=== PATIENT | male | born 1965 | race Caucasian/White ===

== ENCOUNTER 2021-09-04 10:15 | Outpatient (RCR) | payer OTHER, SELFPAY | END 2021-10-27 09:03 | disposition home or self-care (01) | PROVIDERS: PCP Family Medicine; Visit Provider Orthopaedic Surgery | DX: M25.512 Pain in left shoulder (principal); Z51.89 Encounter for other specified aftercare | CPT/HCPCS: 97110 ==

== ENCOUNTER 2022-04-03 12:50 | Outpatient (CLI) | payer OTHER, SELFPAY ==
--- NOTE | 2022-04-03 13:00 | MR_ITS ---
[facility] [address] [facility] [address] Phone:?[phone] Fax:?[phone] Referring Physician Information: Giovanni Kruse M.D. [address] [facility] [address] Phone:?[phone] Fax:?[phone] Patient:Bethel Desai Jack.Colt.B:?1965 Sex:?Male Phone:?[phone] [facility] MRN:?[id number] Exam Date:?04/03/2022 ? EXAM: MRI of the RIGHT HUMERUS/ARM WITHOUT CONTRAST CLINICAL HISTORY: Acute right arm/biceps pain. History of injury lifting cabinets. Concern for biceps tendinitis. COMPARISONS: None available. TECHNICAL: MR sequences of the right humerus: Axials: PD T2FS Coronals: PD, T2, T2 FS Sagittals: PD, T2 CONTRAST: None SEDATION: None FINDINGS: There is rupture of the proximal long head of the biceps tendon with distal tendon retraction to the level of the mid humeral diaphysis. No fracture or suspicious bone marrow signal abnormality is seen. Split longitudinal/interstitial tear within the subscapularis tendon and moderate atrophy of the subscapularis muscle are suspected although it must be noted that the right shoulder including the rotator cuff is not well evaluated by this large [id number] study of the entire right arm/humerus. No mass lesion is seen. IMPRESSION: 1. Rupture of the proximal long head of the biceps tendon with distal tendon retraction to the level of the mid humeral diaphysis. 2. Split longitudinal/interstitial tear within the subscapularis tendon and moderate atrophy of the subscapularis muscle are suspected although it must be noted that the right shoulder including the rotator cuff is not well evaluated by this large [id number] study of the entire right humerus. Dedicated MRI of the right shoulder could be obtained for further evaluation of the right shoulder if clinically indicated. RCB Electronically signed on 04/04/2022 7:38:00 AM by Rao Mcgill M.D.
== END 2022-04-03 12:51 | disposition home or self-care (01) ==
LOC: MRI 12:58
PROVIDERS: PCP Family Medicine; Visit Provider Family Medicine
DX: M25.511 Pain in right shoulder (principal); S46.211A Strain of muscle, fascia and tendon of other parts of biceps, right arm, initial encounter; S46.011A Strain of muscle(s) and tendon(s) of the rotator cuff of right shoulder, initial encounter
CPT/HCPCS: 73218

== ENCOUNTER 2022-04-11 19:15 | Emergency (ER) | payer OTHER, SELFPAY ==
[2022-04-11 19:20] VITALS: BP 167/92; PULSE 72; RESP 20; TEMP 36.7; O2SAT 97; BMI 28.7
--- NOTE | 2022-04-11 19:31 | ED_ITS ---
HPI - General Adult General Time Seen by Provider: 19:31 Date Seen: 04/11/22 Chief complaint: Eye Problems Stated complaint: Right Eye Vision Issues - seeing blood vessels Time Seen by Provider: 04/11/22 19:30 History of Present Illness HPI narrative: 56-year-old male who comes in with painless vision change in the right eye. He reports that started about 630 he noticed an area in his inferior medial visual field on the right that is like ?blood swirling in water. ? It does not look like floaters. He has no eye pain. The area moves when he she has says focus but lags his eye movements. It waxes and wanes in size. He does not have any light sensitivity and denies any eye trauma. Related Data Home Medications Medication Instructions Recorded Confirmed cetirizine 10 mg tablet 10 mg PO QDAY PRN 04/09/22 04/09/22 Previous Rx's Medication Instructions Recorded hydrochlorothiazide 25 mg tablet 25 mg PO QDAY #30 tabs 03/26/22 valacyclovir 1 gram tablet 1,000 mg PO TID #21 tabs 04/09/22 Allergies Allergy/AdvReac Type Severity Reaction Status Date / Time Sulfa (Sulfonamide Allergy Mild Hives Verified 04/11/22 19:24 Antibiotics) PFSH PFS Surgical History (Updated 04/09/22 @ 13:48 by Roma Silvestre ([facility]), [facility]) History of arthroscopy of left shoulder (04/11/21) Social History , [facility]) Smoking Status: Never smoker Exam Narrative: Exam Narrative: General: well nourished , NAD Head: Atraumatic and normocephalic ENT: External ears and external nose are normal Eyes: Conjunctiva clear, pupils are equal reactive, external ocular motions are intact. Slight lag in blinking on the left side, patient has a history of Dunne's palsy. Neck: Full spontaneous range of motion of the neck Lungs: No respiratory distress Musculoskeletal: No tenderness or deformity Neurologic: No gross focal neurologic deficits Skin: No rashes Psych: Mood and affect are appropriate Const: Vital Signs, click to edit/add: Vital Signs - 24 hr 04/11/22 19:20 Temperature 98.0 F Pulse Rate [Pulse Oximeter] 72 Respiratory Rate 20 Blood Pressure [Ri ght Upper Arm] 167/92 H Pulse Oximetry 97 Oxygen Delivery Me thod Room Air Course Course Hospital Course: Patient seen examined, prior records reviewed. Patient with visual field changes in the right eye which he describes as blood floating water. Does not describe occurred and says that he can see through this sometimes, although unable to read any lines of the eye chart. There is no conjunctival injection, pupillary reflexes are intact. No pain, acute angle closure glaucoma is unlikely. Consider retinal detachment or vitreous hemorrhage, vitreous detachment also possible. Ultrasound of the orbit showed a fine linear abnormality just off the right in a on some views but did not seem to attach on either side and was only briefly visualized. Lens appears intact and in place. Dilated exam will be performed and will contact Ophthalmology. Reevaluation(s) Reevaluation #1: CT scan of the orbits is negative. Funduscopic exam after dilation demonstrates some dark maroon discoloration superiorly with well-demarcated line in the mid visual field. Care was discussed with [facility] who recommends follow-up tomorrow morning 8:30 a.m.. Activity precautions were given. Unclear if this represents vitreous hemorrhage, vitreous detachment, retinal detachment. Based on fine lines seen on ultrasound, this would be more consistent with a vitreous detachment. Time: 21:07 Vital Signs Vital signs: Initial Vital Signs Temperature 98.0 F 04/11/22 19:20 Temperature Source Temporal Artery Scan 04/11/22 19:20 Pulse Rate 72 04/11/22 19:20 Pulse Rhythm 04/11/22 19:20 Pulse Strength 3+ Normal 04/11/22 19:20 Respiratory Rate 20 04/11/22 19:20 Blood Pressure 167/92 H 04/11/22 19:20 Blood Pressure Mean 117 04/11/22 19:20 Blood Pressure Position Sitting 04/11/22 19:20 Pulse Oximetry 97 04/11/22 19:20 Oxygen Delivery Method 04/11/22 19:20 Vital Signs Temperature 98.0 F 04/11/22 19:20 Pulse Rate 72 04/11/22 19:20 Respiratory Rate 20 04/11/22 19:20 Blood Pressure 167/92 H 04/11/22 19:20 Pulse Oximetry 97 04/11/22 19:20 Oxygen Delivery Method 04/11/22 19:20 Temperature 98.0 F 04/11/22 19:20 Pulse Rate 72 04/11/22 19:20 Respiratory Rate 20 04/11/22 19:20 Blood Pressure 167/92 H 04/11/22 19:20 Pulse Oximetry 97 04/11/22 19:20 Oxygen Delivery Method 04/11/22 19:20 Discharge Plan Discharge Clinical Impression: Change in vision Patient Disposition: Home w/ Parent or Adult Condition: Stable Instructions: Blurred Vision (ED) Additional Instructions: Lay flat on your back to sleep tonight. Do not been forward at the waist, do not do any heavy lifting into follow-up. Go to [facility] at 8:30 a.m. tomorrow for re-evaluation. Activity Level: No strenuous activity Prescriptions: No Action hydrochlorothiazide 25 mg tablet 25 mg PO QDAY Qty: 30 0RF cetirizine 10 mg tablet 10 mg PO QDAY PRN valacyclovir 1 gram tablet 1,000 mg PO TID Qty: 21 0RF Follow Up/Referrals: Giovanni Kruse MD [Primary Care Provider] - Jamaal Vanegas OD [Referring] - Stand Alone Forms: MyHealth Info Instructions
--- NOTE | 2022-04-11 19:56 | CRLHL7_ITS ---
For Patients: As a result of the Century Cures Act, medical imaging exams and procedure reports are released immediately into your electronic medical record. You may view this report before your referring provider. If you have questions, please contact your health care provider. INDICATION: Vision problems in the right eye, history of left-sided Dunne`s palsy TECHNIQUE: CT sinuses without contrast. COMPARISON: None FINDINGS: Facial bones: No fractures or bone lesions. Specifically the nasal bones, temporomandibular joints, maxilla and mandible appear intact. Orbits and globes: Unremarkable. Sinuses: Left maxillary sinus mucosal thickening. Soft tissues: Unremarkable. IMPRESSION: No etiology seen to explain right sided vision abnormality. Please note that all CT scans at this facility use dose modulation, iterative reconstruction, and/or weight-based dosing when appropriate to reduce radiation dose to as low as reasonably achievable. Dictated by Maty Aguillon MD @ 04/11/2022 8:33:29 PM (Electronically Signed)
== END 2022-04-11 21:28 | disposition home or self-care (01) ==
PROVIDERS: Emergency Provider Family Medicine; PCP Family Medicine
DX: H53.8 Other visual disturbances (principal)
CPT/HCPCS: 70480; 99283; 99284

== ENCOUNTER 2022-04-16 07:30 | Outpatient (CLI) | payer OTHER, SELFPAY ==
--- NOTE | 2022-04-16 07:15 | MR_ITS ---
[address] [address] Phone:?[phone] Fax:?[phone] Referring Physician Information: Casimiro Victor M.D. [address] [facility] [address] Phone:?[phone] Fax:?[phone] Patient:Bethel Desai D.O.B:?1965 Sex:?Male Phone:?[phone] [facility] MRN:?[id number] Exam Date:?04/16/2022 ? EXAM: MRI of the RIGHT SHOULDER, without contrast CLINICAL INFORMATION: Male, 56 years old, with right shoulder pain since sustaining an injury on 03/22/2022. INDICATION: Evaluate for rotator cuff tear. PRIOR SURGERY: None reported. PLAIN FILMS: None available. COMPARISONS: Humerus MRI dated 04/03/2022. TECHNICAL INFORMATION: Using a 1.5T MR scanner and a localizing surface coil: coronal obliques: PD, T2, STIR sagittal obliques: PD, T2 axials: PD, T2 SEDATION: None CONTRAST: None FINDINGS: Bones: Proximal humerus: No fracture or marrow edema/pathology. No humeral Hill-Sachs or reverse Hill-Sachs lesion/impaction or contusion. Glenoid: No fracture or marrow edema/pathology. No osseous Bankart lesion. Rotator cuff and muscles/tendons: Supraspinatus: Mild supraspinatus tendinopathy, without tendon tear or muscle atrophy. Infraspinatus: No tendinopathy, tear or atrophy. Teres minor: No tendinopathy, tear or atrophy. Subscapularis: Moderate-marked tendinopathy of the superior distal subscapularis with high-grade partial-thickness articular/interstitial tearing over an area measuring 2.0 x 2.0 cm, with slender bursal surface fibers remaining intact inserting on the lateral aspect of the bicipital groove (axial T2 series 3 image 42 and sagittal T2 series 8 image 14). Grade 1 muscle atrophy. The muscular attachment is intact more inferiorly. Deltoid: No strain or atrophy. Coracoacromial arch: Acromion morphology: The acromion has type II morphology. No discrete subacromial osseous spur or os acromiale. Acromiohumeral space: The acromiohumeral space is within normal limits. Coracohumeral space: The coracohumeral space is within normal limits. Acromioclavicular joint: Joint: Mild AC joint arthropathy, with 3 mm of inferior osteophytosis that results in a supraspinatus contour abnormality (sagittal PD series 7 image 14). Ligaments: Coracoclavicular ligaments are intact. Bursae: Subacromial-subdeltoid: Mild subacromial-subdeltoid bursal thickening/edema. Subcoracoid: No convincing subcoracoid bursal thickening/bursitis. Biceps tendon: Nonvisualization the biceps long head tendon. Glenohumeral joint: Effusion/cyst: Moderate glenohumeral joint effusion, with synovitis. Articular cartilage: Humeral head: No osteochondral abnormalities. Glenoid: No osteochondral abnormalities. Loose bodies: No discrete intra-articular body within the joint. Labrum:?Intrasubstance degeneration and linear tearing of the superior/posterosuperior labrum measures 2.1 cm (coronal T2 series 6 images 12- 17 and axial PD series 3 images 12-14). No paralabral cyst. Inferior glenohumeral ligament/axillary pouch:?Intact. The axillary pouch is normal in thickness and signal. No evidence of adhesive capsulitis or capsular injury. IMPRESSION: 1. Full-thickness avulsion/disruption of the biceps long head tendon, significant tendon retraction. 2. Moderate-marked subscapularis tendinopathy with a 2.0 x 2.0 cm area of high- grade partial-thickness articular surface tearing involving the majority of the lesser tuberosity attachment. Grade 1 muscle atrophy. 3. Intrasubstance degeneration and linear tearing of the superior/posterosuperior labrum measuring 2.1 cm. No paralabral cyst. 4. Mild AC joint arthropathy which results in a supraspinatus contour abnormality. There is mild subacromial-subdeltoid bursal inflammation. However, the acromiohumeral space is normal. 5. Moderate glenohumeral joint effusion with synovitis. No full-thickness chondral defect or evidence of osteoarthritis. 6. Mild supraspinatus tendinopathy, without tear. BC Electronically signed on 04/16/2022 1:26:00 PM by Wilfredo Mccain M.D.
== END 2022-04-16 07:31 | disposition home or self-care (01) ==
LOC: MRI 07:31
PROVIDERS: PCP Family Medicine; Visit Provider Orthopaedic Surgery
DX: M25.511 Pain in right shoulder (principal); S46.911A Strain of unspecified muscle, fascia and tendon at shoulder and upper arm level, right arm, initial encounter; M75.101 Unspecified rotator cuff tear or rupture of right shoulder, not specified as traumatic; M25.411 Effusion, right shoulder
CPT/HCPCS: 73221

== ENCOUNTER 2022-05-09 08:59 | Outpatient (CLI) | payer OTHER, SELFPAY | END 2022-05-09 09:00 | disposition home or self-care (01) | LOC: NFLDREF 05-11 04:30 | PROVIDERS: PCP Family Medicine; Referring Provider Family Medicine; Visit Provider Family Medicine | DX: Z01.818 Encounter for other preprocedural examination (principal); I10 Essential (primary) hypertension; E78.5 Hyperlipidemia, unspecified; Z86.39 Personal history of other endocrine, nutritional and metabolic disease | CPT/HCPCS: 80053; 80061 ==

== ENCOUNTER 2022-05-22 06:15 | Day surgery (SDC) | payer OTHER, SELFPAY ==
[2022-05-22] VITALS (15 sets, daily range): BP systolic 119–165; BP diastolic 74–99; PULSE 14–90; RESP 14–20; TEMP 36.4–36.6; O2SAT 93–99; BMI 33.3
[2022-05-22] MEDS: CELECOXIB 200 MG CAPSULE PO (06:30)
[2022-05-22] MEDS: OXYCODONE (CR) 10 MG TAB.ER.12H PO (06:30)
[2022-05-22] MEDS: ACETAMINOPHEN 500 MG TABLET 1000 MG PO (06:30)
--- NOTE | 2022-05-22 06:51 | SUR.PREOP ---
Patient provided home covid negative results to RN.
[2022-05-22] MEDS: LACTATED RINGERS 1000 ML 1,000 ML 100 ML IV ×2 (06:55→10:24)
[2022-05-22] MEDS: SODIUM CHLORIDE 0.9 % (FLUSH) 10 ML SYRINGE IVF (06:55)
[2022-05-22] MEDS: fentaNYL 100 MCG/2 ML inj IVP (07:15)
[2022-05-22] MEDS: MIDAZOLAM HCL 1 MG/ML inj IVP (07:15)
--- NOTE | 2022-05-22 07:23 | SUR.PREOP ---
TIME?OUT:?711 PT/Steven HOLCOMB RN/Gemma SERNA CRNA?VERIFICATION?OF?SURGICAL?SITE,?PROCEDURE,?AND?CONSENT OBTAINED?PRIOR?TO?INVASIVE?PROCEDURE.
--- NOTE | 2022-05-22 07:30 | P.NB_ITS ---
Nerve Block Nerve Block Time Seen by Provider: 07:15 Date Seen: 05/22/22 Type of block requested by surgeon for post-operative analgesia: supraclavicular Side: right Time out performed: Yes Verification of patient name: Yes Verification of date of : Yes Site marking: site marked Name of person performing procedure: Mason Moreno CRNA Continuous monitoring Was continuous monitoring of O2 sat, B/P, cardiac monitor technician, recorded every 15 minutes?: Yes Procedure Checklist: sterile prep, needles and gloves Ultrasound guided. Images saved: Yes Medications given in 5ml increments after negative aspiration: Ropivicaine %: 0.5 mL: 25 Needle gauge: 20 Decadron (mg): 10 Precedex (mcg): 20 Patient tolerated procedure well: Yes Block Charges Block Charge (with Pro Fee): Brachial Plexus Use of Ultrasound Machine for Block: Yes- US Guidance/pain block
[2022-05-22] MEDS: CEFAZOLIN 2 GM INJ IVP (07:45)
--- NOTE | 2022-05-22 10:20 | W.ANESCHARGE ---
Anesthesia Charges Start Date/Time Anesthesia Start Date: 05/22/22 Anesthesia Start Time: 07:33 Stop Date/Time Anesthesia Stop Date: 05/22/22 Anesthesia Stop Time: 10:16
--- NOTE | 2022-05-22 10:58 | P.ORPRC_ITS ---
Procedure Note Date of procedure: 05/22/22 Procedure: PREOPERATIVE DIAGNOSIS: Right shoulder subscap tear, biceps tear, AC joint arthrosis POSTOPERATIVE DIAGNOSIS: Right shoulder subscap tear, biceps tear, AC joint arthrosis NAME OF OPERATION: Right shoulder arthroscopic subacromial decompression, distal clavicle excision, arthroscopic subscap repair, sub pec biceps tenodesis SURGEON: Casimiro Victor MD DESIGNER/WRITER: Yumiko Cota PA-C ANESTHESIA: Supraclavicular block plus general endotracheal ESTIMATED BLOOD LOSS: 5 mL COMPLICATIONS: None SPECIMENS: None DRAINS: None PREOPERATIVE ANTIBIOTICS: Ancef 2 grams INDICATIONS: The patient is a 56-year-old with a history of right shoulder pain secondary to the above diagnoses. Despite appropriate non operative management, they continue to have symptoms. Operative intervention was recommended. The risks, benefits and expected outcomes were discussed in detail. These included but were not limited to: Infection, bleeding, injury to blood vessel or nerve, venous thromboembolism. All questions were answered to their satisfaction. PROCEDURE: A supraclavicular block was placed by Anesthesia. General anesthesia was administered. The patient was placed in the high beach chair position. The right shoulder was prepped and draped in the usual sterile fashion. The glenohumeral joint was infiltrated with 20 mL of normal saline with epinephrine. The posterior portal was established, the arthroscope was introduced. The anterior portal was established, Diagnostic arthroscopy was performed with findings as follows: The biceps is torn and most of the tendon is retracted out of the joint. There is a large stump of tendon still attached to the supraglenoid tubercle with a small wisp of tendon headed toward the bicipital groove. There is degenerative tearing of anterior, posterior and superior labrum. Articular surfaces on the humeral head and glenoid are normal. There are no loose bodies. There is low-grade, partial-thickness tearing of the insertion of the supraspinatus. There is a longitudinal split of the subsc ap. The stump of the biceps was debrided with the shaver and the [place]. The labrum was circumferentially debrided with the shaver. A longitudinal split in the subscap was debrided with the shaver. It was then repaired with 2 margin convergence sutures using the scorpion and arthroscopic knot tying. The more lateral suture was then placed in a SwiveLock anchor in the superior, lateral aspect of the lesser tuberosity. This nicely repaired the subscap. The undersurface of the supraspinatus was debrided with the shaver. This results in a 3-4 mm partial-thickness tear of the insertion. The arthroscope was placed in the subacromial space, the lateral portal was established. The Arthrex [place] was used to dissect the acromion free. The CA ligament was recessed off the anterior acromion, the AC joint was exposed. The acromioplasty was performed with the bur in the posterior portal. The bur was then placed in the lateral portal and the lateral and anterior aspect of the acromion were resected. The undersurface of the distal clavicle was resected through the lateral portal. Finally, the bur was placed in the anterior portal and the remainder of the distal clavicle was resected for a total of 10 mm. The subacromial/subdeltoid bursa was aggressively debrided. The bursal surface of the rotator cuff is pristine, without high-grade partial-thickness or full- thickness tearing. Arthroscopic instruments were removed. A longitudinal incision was made over the anterior aspect of the arm at the musculotendinous junction of the biceps. Subcutaneous dissection was taken with Metzenbaum scissors to the biceps tendon. It was freed up from the surrounding scar. There was a 15 mm stump of tendon, proximal to the musculotendinous junction. A 2-0 FiberWire whipstitch was placed in the biceps tendon. We then drilled a unicortical drill hole in the medial aspect of the humerus in the sub pec position. An Arthrex FiberTak anchor was placed. We shuttled both limbs of whip stitch through the anchor. We passed 1 limb through the biceps and tied the sutures over the top of the biceps, securing the sub pec biceps tenodesis. The wound was irrigated with normal saline off the pump. Subcutaneous tissues were closed with a 3-0 Vicryl. Skin was closed with a 3-0 Monocryl in a subcuticular fashion. A dry dressing, polar care and sling were applied. Sponge and needle counts were correct x2. The patient tolerated the procedure well. There were no apparent complications. They were carefully transferred to the hospital bed and taken to the postanesthesia care unit in satisfactory condition. PLAN: The patient will be discharged to home. Gentle, active range of motion of the shoulder will be allowed in forward flexion and abduction. We will avoid external rotation for 6 weeks postoperatively. They can work on active range of motion of the elbow, wrist and fingers, without pulling or lifting with the biceps for 3 months. They will follow up in the office next week for a wound check and an AP and transscapular Y-view of the shoulder prior to being seen.
== END 2022-05-22 12:00 | disposition home or self-care (01) ==
PROVIDERS: PCP Family Medicine; Visit Provider Orthopaedic Surgery
PROC: (CPT 23412; principal; 2022-05-22 07:45)
DX: S46.011A Strain of muscle(s) and tendon(s) of the rotator cuff of right shoulder, initial encounter (principal); S46.211A Strain of muscle, fascia and tendon of other parts of biceps, right arm, initial encounter; M19.011 Primary osteoarthritis, right shoulder
CPT/HCPCS: 29827; 29828; 29826; 29824; 1630; 64415; 76942; A9270; C1713; J0330; J0690; J1100; J2250; J2370; J2405; J2704; J2710; J2795; J3010; J7120; L3670

== ENCOUNTER 2022-06-11 13:57 | Outpatient (CLI) | payer OTHER, SELFPAY | END 2022-06-11 13:58 | disposition home or self-care (01) | LOC: FBOREF 15:07 | PROVIDERS: PCP Family Medicine; Visit Provider Physician Assistant | DX: Z01.818 Encounter for other preprocedural examination (principal); I10 Essential (primary) hypertension | CPT/HCPCS: 87040; 87070; 87075; 87186 ==

== ENCOUNTER 2022-06-12 07:19 | Day surgery (SDC) | payer OTHER, SELFPAY ==
[2022-06-12] VITALS (13 sets, daily range): BP systolic 124–155; BP diastolic 80–96; PULSE 72–109; RESP 16–20; TEMP 36.7–37.2; O2SAT 92–97; BMI 33.2
[2022-06-12] MEDS: LACTATED RINGERS 1000 ML 1,000 ML 100 ML IV (07:15)
[2022-06-12] MEDS: fentaNYL 100 MCG/2 ML inj IVP (07:30)
[2022-06-12] MEDS: MIDAZOLAM HCL 1 MG/ML inj IVP (07:30)
--- NOTE | 2022-06-12 08:42 | SUR.PREOP ---
TIME?OUT:?0728 PT/RN/MDA?VERIFICATION?OF?SURGICAL?SITE,?PROCEDURE,?AND?CONSENT OBTAINED?PRIOR?TO?INVASIVE?PROCEDURE.
[2022-06-12] MEDS: CEFAZOLIN 2 GM INJ IVP (09:39)
--- NOTE | 2022-06-12 10:25 | PM.ORPRC ---
Procedure Note Date of procedure: 06/12/22 Procedure: PREOPERATIVE DIAGNOSIS: Right shoulder anterior portal infection, status post rotator cuff repair POSTOPERATIVE DIAGNOSIS: Right shoulder anterior portal infection, status post rotator cuff repair NAME OF OPERATION: Right shoulder open anterior portal incision and drainage, arthroscopic glenohumeral joint and subacromial space irrigation and debridement SURGEON: Casimiro Victor MD LIME VAT TENDER: TAMIKA Marshall ANESTHESIA: Supraclavicular block plus general endotracheal ESTIMATED BLOOD LOSS: 5 mL COMPLICATIONS: None SPECIMENS: Gram stain, aerobic and anaerobic cultures labeled as anterior portal (these should be held for 2 weeks, suspecting a cuti bacterium infection) DRAINS: None PREOPERATIVE ANTIBIOTICS: Ancef 2 grams INDICATIONS: The patient is a 56-year-old with a history of right shoulder rotator cuff repair. His anterior portal has been red, swollen with purulent drainage. Timely irrigation and debridement was recommended. The risks, benefits and expected outcomes were discussed in detail. These included but were not limited to: Infection, bleeding, injury to blood vessel or nerve, venous thromboembolism. All questions were answered to their satisfaction. PROCEDURE: A supraclavicular block was placed by Anesthesia. General anesthesia was administered. The patient was placed in the high beach chair position. The right shoulder was prepped and draped in the usual sterile fashion. The previously placed anterior portal was opened with a Sofiya. A tiny amount of purulent drainage was encountered. This was sent for Gram stain and culture. The wound was probed and was felt to not track deep, into the subacromial space or glenohumeral joint. It was irrigated with normal saline off of the pump. The arthroscope was introduced through the previously placed posterior portal. Anterior portal was not instrumented, into the joint or subacromial space throughout the case. Diagnostic arthroscopy was performed with findings as follows: The articular surfaces are normal the biceps has been resected. The insertion of the supraspinatus is intact. The margin convergence suture in the subscap remains intact. Suture in the insertion of the subscap has pulled through, resulting in partial detachment of the upper subscap from the lesser tuberosity. There is no purulence in the glenohumeral joint. Normal saline was run through the glenohumeral joint via the pump. The scope fluid does not communicate with anterior portal. The arthroscope was then placed in the subacromial space. The previously placed lateral portal was established. There is no purulence in the subacromial space. Additionally, the subacromial space does not communicate with anterior portal. The shaver was used to debride some of the soft tissues in the subacromial space. We ran the rest of the arthroscopic fluid through the subacromial space. Arthroscopic instruments were removed. Portals were closed with a 3-0 nylon. A dry dressing was applied. Sponge and needle counts were correct x2. The patient tolerated the procedure well. There were no apparent complications. They were carefully transferred to the hospital bed and taken to the postanesthesia care unit in satisfactory condition. PLAN: The patient will be discharged to home. Restrictions will be unchanged from previous. He will be treated with Keflex 500 mg p.o. q.i.d. x2 weeks.
--- NOTE | 2022-06-12 10:29 | W.ANESCHARGE ---
Anesthesia Charges Start Date/Time Anesthesia Start Date: 06/12/22 Anesthesia Start Time: 09:16 Stop Date/Time Anesthesia Stop Date: 06/12/22 Anesthesia Stop Time: 10:27
--- NOTE | 2022-06-12 11:41 | W.PM.NB ---
Nerve Block Nerve Block Time Seen by Provider: 08:31 Date Seen: 06/12/22 Type of block requested by surgeon for post-operative analgesia: supraclavicular Side: right Time out performed: Yes Verification of patient name: Yes Verification of date of : Yes Site marking: site marked Name of person performing procedure: [place] Continuous monitoring Was continuous monitoring of O2 sat, B/P, industrial hygiene engineer, recorded every 15 minutes?: Yes Procedure Checklist: sterile prep, needles and gloves Ultrasound guided. Images saved: Yes Medications given in 5ml increments after negative aspiration: Ropivicaine %: 0.5 mL: 20 Needle gauge: 22 Decadron (mg): 10 Precedex (mcg): 25 Patient tolerated procedure well: Yes Block Charges Block Charge (with Pro Fee): Brachial Plexus Use of Ultrasound Machine for Block: Yes- US Guidance/pain block
--- NOTE | 2022-06-12 11:42 | W.ANESCHARGE ---
Anesthesia Charges Start Date/Time Anesthesia Start Date: 06/12/22 Anesthesia Start Time: 09:16 Stop Date/Time Anesthesia Stop Date: 06/12/22 Anesthesia Stop Time: 10:27
== END 2022-06-12 12:06 | disposition home or self-care (01) ==
PROVIDERS: Visit Provider Orthopaedic Surgery
PROC: (CPT 29805; principal; 2022-06-12 08:45)
DX: T81.49XA Infection following a procedure, other surgical site, initial encounter (principal)
CPT/HCPCS: 29822; 01630; 76942; 87070; 87075; 87186; 87205; J0330; J0690; J1100; J2250; J2405; J2704; J2795; J3010; J7120

== ENCOUNTER 2022-06-14 18:26 | Emergency (ER) | payer OTHER, SELFPAY ==
[2022-06-14 18:35] VITALS: BP 158/99; PULSE 78; RESP 18; TEMP 36.9; O2SAT 98; BMI 33.2
[2022-06-14 19:00] VITALS: BP 140/92; PULSE 72; RESP 18; O2SAT 94
--- NOTE | 2022-06-14 19:14 | ED_ITS ---
HPI - General Adult General Time Seen by Provider: 19:14 Date Seen: 06/14/22 Chief complaint: High Blood Pressure Stated complaint: BP spiking a lot, Home reading of 176/107 Time Seen by Provider: 06/14/22 18:51 Source: patient Mode of arrival: ambulatory Limitations: no limitations History of Present Illness HPI narrative: Fady is a 56-year-old male past medical history includes hypertension on hydrochlorothiazide 25 mg, status post arthroscopic of right shoulder and recently clean out for postoperative infection presents emerged department with with elevated blood pressure reading. Patient states he had arthroscopic right shoulder surgery on 05/22, after that time he developed increasing pain and drainage from the incision site, he was seen by Orthopedics and they went in to perform a washout for postoperative infection. He is not currently on any antibiotics. For the last 3 weeks he has been on Percocet for pain, he usually takes 1 tablet per day, his last tablet was last night, he is now on tell an awl and Advil. His pain has improved, there has not been any drainage from the surgical sites, he has not had any fevers or chills, felt more fatigued today checked his blood pressure continue to elevate 1 time to being 176/107, denies any visual changes, headache, chest pain or shortness of breath. Patient did check it multiple times. Patient was concerned that possibly the infection was back. No other concerns at this time. Related Data Home Medications Medication Instructions Recorded Confirmed cetirizine 10 mg tablet 10 mg PO QDAY PRN 04/09/22 06/11/22 Previous Rx's Medication Instructions Recorded hydrochlorothiazide 25 mg tablet 25 mg PO QDAY #90 tabs 05/09/22 cephalexin 500 mg tablet 500 mg PO QID #56 tabs 06/12/22 oxycodone-acetaminophen 5 mg-325 1 - 2 tab PO Q4-6H PRN pain #20 06/12/22 mg tablet (Percocet) tabs Allergies Allergy/AdvReac Type Severity Reaction Status Date / Time Sulfa (Sulfonamide Allergy Mild Hives Verified 06/11/22 13:34 Antibiotics) Review of Systems Status of ROS: Reports: 10 or more systems reviewed and unremarkable except as noted in History and below PFSH PFS Surgical History History of arthroscopy of left shoulder (04/11/21) ?Z98.890 - Other specified postprocedural states (ICD-10) S/P arthroscopy of right shoulder (05/22/22) ?Z98.890 - Other specified postprocedural states (ICD-10) Social History Smoking Status: Never smoker How often do you have a drink containing alcohol: never AUDIT-C Alcohol total score: 0 Non-prescribed substance use: denies use Caffeine: Yes Little interest or pleasure in doing things: not at all Feeling down, depressed, or hopeless: not at all Exam Narrative: Exam Narrative: General: No obvious distress sitting comfortably, nontoxic in appearance HEENT: Pupils equal round reactive to light, extraocular muscles intact, oropharynx clear moist Neck: Full range of motion, supple Lungs: Clear to auscultation bilaterally Heart: Normal sinus rhythm S1-S2 Muscle skeletal: Right shoulder, incision sites look clean, no surrounding erythema or tenderness to palpation. Neuro: Alert awake and oriented x3 Const: Vital Signs, click to edit/add: Vital Signs - 24 hr 06/14/22 18:35 Temperature 98.4 F Pulse Rate [Left P ulse Oximeter] 78 Respiratory Rate 18 Blood Pressure [Ri ght Upper Arm] 158/99 H Pulse Oximetry 98 Oxygen Delivery Me thod Room Air Course Course Hospital Course: 7:00 PM: AIDET, patient's blood pressure is 140/92, patient is not febrile, no tachycardia, less likely sepsis based on exam and vital signs, will still obtain CBC, CMP, lactate and blood cultures, will continue to monitor his blood pressure, no signs of any hypertensive emergency or urgency. Patient was in agreement. Differential diagnosis include but not limited to septic arthritis, cellulitis, sepsis, contusion, ocular damage nerve damage ligament damage as well as hypertensive emergency or urgency as well as all etiologies. Reevaluation(s) Reevaluation #1: Patient was updated on his lab results, CBC showed no leukocytosis, lactate was normal, metabolic panel showed no electrolyte abnormalities, based on physical exam and lab values no signs of any infection blood pressure remained stable during his stay, he was feeling better after above care given, he does have follow-up with orthopedics this Saturday, no changes to be made with his hydrochlorothiazide, he will take his Percocet once he gets home this evening, return precautions given. Time: 21:08 Vital Signs Vital signs: Initial Vital Signs Temperature 98.4 F 06/14/22 18:35 Temperature Source Temporal Artery Scan 06/14/22 18:35 Pulse Rate 78 06/14/22 18:35 Respiratory Rate 18 06/14/22 18:35 Blood Pressure 158/99 H 06/14/22 18:35 Blood Pressure Mean 118 H 06/14/22 18:35 Blood Pressure Position Sitting 06/14/22 18:35 Pulse Oximetry 98 06/14/22 18:35 Oxygen Delivery Method Room Air 06/14/22 18:35 Vital Signs Temperature 98.4 F 06/14/22 18:35 Pulse Rate 78 06/14/22 18:35 Respiratory Rate 18 06/14/22 18:35 Blood Pressure 158/99 H 06/14/22 18:35 Pulse Oximetry 98 06/14/22 18:35 Oxygen Delivery Method Room Air 06/14/22 18:35 Temperature 98.4 F 06/14/22 18:35 Pulse Rate 78 06/14/22 18:35 Respiratory Rate 18 06/14/22 18:35 Blood Pressure 158/99 H 06/14/22 18:35 Pulse Oximetry 98 06/14/22 18:35 Oxygen Delivery Method Room Air 06/14/22 18:35 Medical Decision Making Lab Data Labs: Lab Results 06/14/22 Range/Units 19:34 WBC 5.51 (4.50-11.00) K/uL RBC 4.71 (4.30-5.90) m/uL Hgb 13.6 (13.5-17.5) gm/dL Hct 42.2 (37.0-53.0) % MCV 90 (80-100) fL MCH 29 (26-34) pg MCHC 32 (32-36) gm/dL RDW Coeff of Matthew 14.3 (11.5-15.5) % Plt Count 221 (140-440) K/uL Neut % (Auto) 42.5 (42.0-72.0) % Lymph % (Auto) 45.2 H (20-44) % [place] % (Auto) 8.0 (0.0-11.0) % Eos % (Auto) 3.6 (0.0-7.0) % Baso % (Auto) 0.5 (0.0-3.0) % Neut # (Auto) 2.34 (1.7-7.0) K/uL Lymph # (Auto) 2.50 (0.90-2.90) K/uL [place] # (Auto) 0.40 (0.00-0.90) K/UL Eos # (Auto) 0.20 (0.00-0.50) K/uL Baso # (Auto) 0.03 (0.00-0.30) K/uL Sodium 139 (135-149) mmol/L Potassium 3.7 (3.6-5.1) mmol/L Chloride 106 (96-114) mmol/L Carbon Dioxide 27 (20-32) mmol/L BUN 23 (7-30) mg/dL Creatinine 0.8 (0.5-1.5) mg/dL Estimated Creat Clear 101.88 Estimated GFR 103 ml/min Glucose 89 (60-115) mg/dL Lactate 0.7 (0.5-1.9) mmol/L Calcium 8.9 (8.4-10.6) mg/dL Total Bilirubin 0.5 (0.1-1.5) mg/dL AST 22 (12-35) U/L ALT 26 (4-50) U/L Alkaline Phosphatase 54 (40-150) U/L Total Protein 6.6 (6.0-8.3) g/dL Albumin 4.1 (3.3-5.0) g/dL Discharge Plan Discharge Clinical Impression: S/P arthroscopy of right shoulder, Elevated blood pressure reading Patient Disposition: Home, Self-Care Condition: Improved Instructions: Hypertension (ED) Additional Instructions: To follow-up as scheduled with Orthopedics here in [place] next Saturday, continue with current medications for blood pressure hydrochlorothiazide 25 mg tablets daily, can continue with Advil and/or Tylenol every 4-6 hours for shoulder pain, for breakthrough pain Percocet 5/325 mg, return if any worsening symptoms. Activity Level: Activity as Tolerated Prescriptions: No Action hydrochlorothiazide 25 mg tablet 25 mg PO QDAY Qty: 90 3RF oxycodone-acetaminophen [Percocet] 5-325 mg tablet 1 - 2 tab PO Q4-6H PRN (Reason: pain) Qty: 20 0RF cephalexin 500 mg tablet 500 mg PO QID Qty: 56 0RF cetirizine 10 mg tablet 10 mg PO QDAY PRN Follow Up/Referrals: Giovanni Kruse MD [Primary Care Provider] - Stand Alone Forms: [employer] Info Instructions
[2022-06-14 19:30] VITALS: BP 144/92; PULSE 69; RESP 18; O2SAT 96
[2022-06-14 19:51] LABS: Basophils Absolute Auto 0.03 K/uL (0.00-0.30); Basophils Percent Auto 0.5 % (0.0-3.0); Eosinophils Percent Auto 3.6 % (0.0-7.0); Hematocrit 42.2 % (37.0-53.0); Hemoglobin* 13.6 gm/dL (13.5-17.5); Immature Granulocytes Abs Auto 0.01 K/uL (0.00-0.30); Immature Granulocytes Pct Auto 0.2 %; Lymphocytes Percent Auto 45.2 % (20-44); Mean Corpuscular HGB Conc 32 gm/dL (32-36); Mean Corpuscular Hemoglobin 29 pg (26-34); Mean Corpuscular Volume 90 fL (80-100); Neutrophils Absolute Auto 2.34 K/uL (1.7-7.0); Neutrophils Percent Auto 42.5 % (42.0-72.0); Platelet Count* 221 K/uL (140-440); RDW Coefficient of Variation % 14.3 % (11.5-15.5); Red Blood Count 4.71 m/uL (4.30-5.90); White Blood Count* 5.51 K/uL (4.50-11.00)
[2022-06-14 19:52] LABS: Lactate* 0.7 mmol/L (0.5-1.9)
[2022-06-14 19:53] LABS: Slide Review Reflex No
[2022-06-14 20:00] VITALS: BP 161/97; PULSE 68; RESP 18; O2SAT 94
[2022-06-14 20:08] LABS: Albumin* 4.1 g/dL (3.3-5.0); Chloride* 106 mmol/L (96-114); Sodium* 139 mmol/L (135-149)
[2022-06-14 20:09] LABS: Potassium* 3.7 mmol/L (3.6-5.1)
[2022-06-14 20:11] LABS: Alanine Aminotransferase* 26 U/L (4-50); Alkaline Phosphatase* 54 U/L (40-150); Aspartate Amino Transferase* 22 U/L (12-35); Bilirubin Total* 0.5 mg/dL (0.1-1.5); Blood Urea Nitrogen* 23 mg/dL (7-30); Carbon Dioxide* 27 mmol/L (20-32); Creatinine* 0.8 mg/dL (0.5-1.5); Est. Creatinine Clearance* 101.88; Estimated Glomerular Filt Rate 103 ml/min; Glucose* 89 mg/dL (60-115); Total Protein* 6.6 g/dL (6.0-8.3)
[2022-06-14 20:12] LABS: Calcium* 8.9 mg/dL (8.4-10.6)
[2022-06-14 20:30] VITALS: BP 160/95; PULSE 73; RESP 18; O2SAT 94
[2022-06-14 21:00] VITALS: BP 163/102; PULSE 84; RESP 18; O2SAT 95
== END 2022-06-14 21:32 | disposition home or self-care (01) ==
PROVIDERS: Emergency Provider Student in an Organized Health Care Education/Training Program; PCP Family Medicine
DX: I10 Essential (primary) hypertension (principal)
CPT/HCPCS: 36415; 80053; 83605; 85025; 87040; 99283

== ENCOUNTER 2022-11-06 13:45 | Outpatient (RCR) | payer OTHER, SELFPAY | END 2023-02-04 15:05 | disposition home or self-care (01) | PROVIDERS: PCP Family Medicine; Visit Provider Physician Assistant Surgical | DX: M25.511 Pain in right shoulder (principal); Z98.890 Other specified postprocedural states; Z51.89 Encounter for other specified aftercare | CPT/HCPCS: 97110; 97140; 97162 ==

== ENCOUNTER 2022-12-18 12:30 | Outpatient (RCR) | payer OTHER, SELFPAY ==
--- NOTE | 2022-11-19 15:27 | PT.OPEX ---
PT [facility] Eval PT [facility] Outpatient Eval Start: 11/19/22 14:08 Freq: Status: Active Protocol: Document 11/19/22 14:09 CRP (Rec: 11/19/22 15:23 CRP [id number]) E-signed By Nehemias Puri PT Physical Therapy Outpatient Evaluation Insurance Information Insurance Name [employer] Medical Diagnosis Low back pain Treating Diagnosis Back pain Back stiffness poor motor control of the thoracolumbar spine Referring MD Dr Kruse Subjective Subjective Pt has had a year hx of right sided back pain Pain increases with any activity. 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 Lying down at night will then be really painful. Does not always matter what side he sleeps on. Pain increases with bending and lifting. Prolonged sitting is ok. Pain located TL junction off to the R. Denies numbness or tingling. Denies pain into the LEs. Pt has not found any specific exer he can do to help. Pt works with a [employer] company and spends most of his time sitting. Pt does note that over recent hx he and his have built a home. He had done a lot of his own work . Pain Comments Pain can be 0/10 with sitting. During the day the pain at most will be 3/10. LYing down pain can be 7/10 pain. Current Work Status Chief Nurse Objective Range of Motion Trunk ROM Flex WNL Ext min dec with R TL spine BIlat SB min dec Combined ext and R rot/R SB painful Bilat rot min dec with R pain on L rotation Strength MMT Myotomes WNL Palpation Palpable pain R thoracolumbar spine paraspinals Other/Pertinent Objective Segmental testing UPAs painful T9-12 on R R rot mobs - mild restriction and painfree Assessment Assessment/Impression Pt presents to the clinic with ongoing R sided thoracolumbar spine pain that appears secondary to nociceptive pain mechanisms related to facet closing on at the R thoracolumbar spine. Pts presentation is characterized by painful hypomobility of the thoracolumbar spine, poor nm control of the trunk and general lower quadrant weakness. Skilled PT is necessary to incorporate ther ex, nm yessica, ther act, manual therapy and pt education to decrease pain and improve functional mobility. Primary Functional Limitations Working on property Bending/twisting/lifting Plan of Care Rehabilitation Potential Excellent Physical Therapy Goals 1. Pt will be 100% independent with HEP in 6 weeks. 2. Pt will complete chores around property without c.o pain in 10 weeks. 3. Pt will sleep through the night without c.o pain in 12 weeks. Coordination/Communication With Referral Source Treatment Plan/Direct Interventions Joint Mobilization,Manual Therapy,Neuromuscular Re-ed, Self-Care/Home Management, Therapeutic Activities, Therapeutic Exercises Frequency/Duration 1-2x/wk for 12 weeks Patient Will Be Discharged From Therapy Completion of LTG(s),Skills Plateau,Independent w/HEP, Independently Progressing Evaluation Billing Untimed Code Treatment Minutes 30 Complexity Moderate Certification Information Physician Comment/Change : Physician NPI Number #
== END 2023-03-07 14:48 | disposition home or self-care (01) ==
PROVIDERS: PCP Family Medicine; Visit Provider Family Medicine
DX: M54.50 Low back pain, unspecified (principal); M25.69 Stiffness of other specified joint, not elsewhere classified; Z51.89 Encounter for other specified aftercare
CPT/HCPCS: 97110; 97112; 97140; 97162

== ENCOUNTER 2023-09-03 19:40 | Outpatient (CLI) | payer OTHER, SELFPAY ==
--- OUTSIDE RECORDS SUMMARY | 2023-09-03 19:42 | XMS_ITS | Clinical Summary ---
Author Organization [facility] Address [address] [place] [address] Care Team Providers Care Admitting Coordinator Name Role Phone Andrew Wood MD Primary Care Provider Source Comments You are receiving this document as you are listed as the primary care provider,follow-up provider, or the patient has been referred to you for consultation.This is in compliance with the Medicare and[facility],which states Providers who transition their patient to another setting of careor provider of care or refers their patient to another provider of care shouldprovide summary care record for each transition of care or referral. [facility] Allergies No known active allergies Medications Medication Sig Dispensed Refills Start Date End Date Status ATENolol (AKA TENORMIN) 100 MG tablet Take 100 mg by mouth daily. Active SIMVASTATIN Active Loratadine-Pseudoephedr ine (CLARITIN-D 24 HOUR OR) Active amoxicillin-clavulanate (AKA AUGMENTIN) 875 mg tabletIndications:Wound infection Take 1 Tab by mouth two times a day. 20 Tab 0 08/21/2011 Active Active Problems No known active problems Immunizations Name Administration Dates Next Due Pfizer Monovalent 12+ Purple Top 02/07/2021,05/19,05/14/2020 Tdap 08/12/2011 Social History Tobacco Use Types Packs/Day Years Used Date Smoking Tobacco: Never Smokeless Tobacco: Never Alcohol Use Standard Drinks/Week Comments Not Asked 0 (1 standard drink = 0.6 oz pur e alcohol) Sex and Gender Information Value Date Recorded Sex Assigned at Not on file Gender Identity Not on file Sexual Orientation Not on file Last Filed Vital Signs Vital Sign Reading Time Taken Comments Blood Pressure 148/90 08/21/2011 8:27 PM CDT Pulse 87 08/21/2011 8:27 PM CDT Temperature 37.9 ??C (100.3 ??F) 08/21/2011 8:27 PM C DT Respiratory Rate 18 08/21/2011 8:27 PM CDT Oxygen Saturation - - Inhaled Oxygen Concentration - - Weight 112.9 kg (249 lb) 08/21/2011 8:27 PM CDT Height 177.8 cm (5' 10) 08/21/2011 8:27 PM CDT Body Mass Index 35.73 08/21/2011 8:27 PM CDT Plan of Treatment Health Maintenance Due Date Last Done Comments Colon Cancer Screening Plan Due 1965 Hep C Screening (Preventive Services) 1965 PSA Screening Discussion 1964 HIV Screening (Preventive Services) 1980 Adult Preventive Visit 1982 HepB (1) 08/28/1983 Cholesterol 08/28/1999 Zoster/Shingles (1 of 2) 2014 COVID-19 Vaccine (4 - 2022-2 4 season) 2022 02/07/2021, 06/04/2020, 05/14/2020 Influenza (#1) 2023 DTaP/Tdap/Td (3 - Tdap) 01/09/2028 01/09/20 18, 08/12/2011, 06/16/1998 HepA Aged Out No longer eligi ble based on patient's age to complete this topic Hib Aged Out No longer eligi ble based on patient's age to complete this topic IPV (Polio) Aged Out No longer eligi ble based on patient's age to complete this topic MCV4 Aged Out No longer eligi ble based on patient's age to complete this topic Pneumococcal Aged Out No longer eligi ble based on patient's age to complete this topic Care Teams Admitting Coordinator Relationship Specialty Start Date End Date Andrew Wood MD [address] [place] [address] PCP - General Family Practice 08/12/11
--- OUTSIDE RECORDS SUMMARY | 2023-09-03 19:42 | XMS_ITS | Clinical Summary ---
Author Organization [facility] Address [place], [place] [address] Care Team Providers Care Director Advertising Name Role Phone Staff, Other Clinical Primary Care Provider Unav ailable Allergies Active Allergy Reactions Criticality Noted Date Comments Sulfa (Sulfonamide Antibiotics) Rash 06/18 Medications Medication Sig Dispensed Refills Start Date End Date Status hyaluronidase in lido 2%-bupiv. 0.75% - long eye block, clinic supply, Use as directed for procedure. Refrigerate. Exp: 07/13/22 DOS: 07/13/22 10 mL 07/02/2022 Active hydroCHLOROthiazide (HCTZ) 25 mg tablet Take 25 mg by mouth once daily. Active cetirizine (ZYRTEC) 10 mg tablet Take 10 mg by mouth once daily if needed for Allergy Symptoms. Active prednisoLONE acetate 1% ophthalmic (Pred Forte) suspension Place 1 Drop into right eye four times daily. Active atropine 0.01 % dpem Place 1 Drop into the eye(s) two times daily. Active ofloxacin 0.3 % ophthalmic (OCUFLOX) 0.3 % ophthalmic solution Place 1 Drop into right eye four times daily. Active Active Problems No known active problems Social History Tobacco Use Types Packs/Day Years Used Date Smoking Tobacco: Never Smokeless Tobacco: Never Tobacco Cessation:Counseling Given: Not Answered Sex and Gender Information Value Date Recorded Sex Assigned at Not on file Gender Identity Not on file Sexual Orientation Not on file Obstetrics History Last Filed Vital Signs Vital Sign Reading Time Taken Comments Blood Pressure 142/84 07/13/2022 9:46 AM CDT Pulse 79 07/13/2022 9:46 AM CDT Temperature 36 ??C (96.8 ??F) 07/13/2022 9:17 AM CDT Respiratory Rate 16 07/13/2022 9:46 AM CDT Oxygen Saturation 98% 07/13/2022 9:46 AM CDT Inhaled Oxygen Concentration - - Weight 104.3 kg (230 lb) 07/12/2022 10:12 AM CDT Height 175.3 cm (5' 9) 07/12/2022 10:12 AM CDT Body Mass Index 33.96 07/12/2022 10:12 AM CDT Plan of Treatment Not on file Advance Directives * Full Code (Latest Code Status on File) Date Activated Date Inactivated Comments 07/13/2022 7:33 AM 07/13/2022 12:23 PM Question Answer Comments Code Status Discussion: Reviewed Preferences Care Teams Director Advertising Relationship Specialty Start Date End Date Staff, Other Clinical . PCP - General 07/03/22
--- NOTE | 2023-09-10 08:54 | W.PM.SLEEP ---
Sleep Study Details Details Interpreting Provider: Nila Date of Sleep Study: 09/03/23 Sleep Study Details: STUDY TYPE:? Home unattended ? BMI:? 33.7 ORDERING PROVIDER:Valentin Dotson INDICATION:? Concerned about sleep apnea ? SLEEP SUMMARY:? 483 minutes monitored RESPIRATORY SUMMARY:? AHI 25.9, left lateral 7.1, supine 68.2, right lateral 15.6 Low oxygen 77 4.4% of study oxygen less than 90% Snoring 76.1% PERIODIC LIMB MOVEMENTS OF SLEEP:? Not recorded CARDIAC:? Range 50-106, mean 64.6 IMPRESSION:? Moderate obstructive sleep apnea with significant supine position dependency RECOMMENDATION: Best treatment option is likely AutoSet CPAP pressure 4-17.
== END 2023-09-03 19:41 | disposition home or self-care (01) ==
LOC: SLEEP 19:40
PROVIDERS: PCP Family Medicine; Visit Provider Otolaryngology
DX: G47.33 Obstructive sleep apnea (adult) (pediatric) (principal)
CPT/HCPCS: 95806

== ENCOUNTER 2023-11-01 08:02 | Outpatient (CLI) | payer OTHER, SELFPAY ==
--- OUTSIDE RECORDS SUMMARY | 2023-11-05 04:07 | XMS_ITS | Clinical Summary ---
Author Organization [facility] Address [address] [place] [address] Care Team Providers Care Gameplay Engineer Name Role Phone Andrew Wood MD Primary Care Provider Source Comments You are receiving this document as you are listed as the primary care provider,follow-up provider, or the patient has been referred to you for consultation.This is in compliance with the Medicare and[facility],which states Providers who [...] 1964 Hep C Screening (Preventive Services) 1964 MTM Covered 1964 PSA Screening Discussion 1964 HIV Screening (Preventive Services) 1980 Adult Preventive Visit 1982 HepB (1) 08/28/1983 Cholesterol 08/28/1999 Zoster/Shingles (1 of 2) 2014 COVID-19 Vaccine (2023-2 5 season) 2023 02/07/2021, 06/04/2020, 05/14/2020 Influenza (#1) 2023 DTaP/Tdap/Td [...] age to complete this topic Care Teams Gameplay Engineer Relationship Specialty Start Date End Date Andrew Wood MD [address] [place] [address] PCP - General Family Practice 08/12/11
--- OUTSIDE RECORDS SUMMARY | 2023-11-05 04:07 | XMS_ITS | Clinical Summary ---
Author Organization [facility] Address [place], [place] [address] Care Team Providers Care Child Welfare Worker Name Role Phone Staff, Other Clinical Primary [...] Code Status Discussion: Reviewed Preferences Care Teams Child Welfare Worker Relationship Specialty Start Date End Date Staff, Other Clinical . PCP - General 07/03/22
== END 2023-11-01 08:03 | disposition home or self-care (01) ==
LOC: NFLDREF 11-05 04:06
PROVIDERS: PCP Family Medicine; Referring Provider Family Medicine; Visit Provider Family Medicine
DX: E78.5 Hyperlipidemia, unspecified (principal); I10 Essential (primary) hypertension; Z12.5 Encounter for screening for malignant neoplasm of prostate
CPT/HCPCS: 80053; 80061; G0103

== ENCOUNTER 2024-04-30 16:56 | Emergency (ER) | payer BC, SELFPAY ==
--- OUTSIDE RECORDS SUMMARY | 2024-04-30 16:58 | XMS_ITS | Clinical Summary ---
Author Organization [facility] Address [address] [place] [address] Care Team Providers Care Director Of Materials Name Role Phone Andrew Wood MD Primary Care Provider Source Comments You are receiving this document as you are listed as the primary care provider,follow-up provider, or the patient has been referred to you for consultation.This is in compliance with the Medicare and[facility],which states Providers who transition their patient to another setting of careor provider of care or refers their patient to another provider of care shouldprovide summary care record for each transition of care or referral. [facility] Allergies No known active allergies Medications ATENolol (AKA TENORMIN) 100 MG tablet Take 100 mg by mouth daily. Active SIMVASTATIN Active Loratadine-Pseud oephedrine (CLARITIN-D 24 HOUR OR) Active amoxicillin-clav ulanate (AKA AUGMENTIN) 875 mg tabletIndication s:Wound infection Take 1 Tab by mouth two times a day. 20 Tab 0 08/21/2011 Active Active Problems No known active problems Immunizations Immunization Administration Dates Next Due Pfizer Monovalent 12+ Purple Top 02/07/2021,05/19,05/14/2020 Tdap 08/12/2011 Social History Tobacco Use Types Packs/Day Years Used Date Smoking Tobacco: Never Smokeless Tobacco: Never Alcohol Use Standard Drinks/Week Comments Not Asked 0 (1 standard drink = 0.6 oz pur e alcohol) Sex and Gender Information Value Date Recorded Sex Assigned at Not on file Legal Sex Male 6:50 AM CDT Gender Identity Not on file Sexual Orientation Not on file Last Filed Vital Signs Vital Sign Reading Time Taken Comments Blood Pressure 148/90 08/21/2011 8:27 PM CDT Pulse 87 08/21/2011 8:27 PM CDT Temperature 37.9 C (100.3 F) 08/21/2011 8:27 PM CDT Respiratory Rate 18 08/21/2011 8:27 PM CDT [...] Visit 1982 HepB (1) 08/28/1983 Cholesterol 08/28/1999 Pneumococcal 50+ Yrs (1 of 1 - PCV) 2014 Zoster/Shingles (1 of 2) 2014 COVID-19 Vaccine (4 - 2023-2 5 season) 2023 02/07/2021, 06/04/2020, 05/14/2020 Influenza [...] on patient's age to complete this topic Meningococcal B Aged Out No longer el igible based on patient's age to complete this topic Pneumococcal Aged Out No longer eligi ble based on patient's age to complete this topic Insurance F[employer] INSURED FULLY INSURED Care Teams Director Of Materials Relationship Specialty Start Date End Date Andrew Wood MD [address] [place] [address] PCP - General Family Practice 08/12/11
--- OUTSIDE RECORDS SUMMARY | 2024-04-30 16:58 | XMS_ITS | Clinical Summary ---
Author Organization [facility] Address [address] [place] [id number] Care Team Providers Care Equity Director Name Role Phone Staff, Other Clinical Primary Care Provider Unav ailable Allergies Active Allergy Reactions Criticality Noted Date Comments Sulfa (Sulfonamide Antibiotics) Rash 06/18 Medications hyaluronidase in lido 2%-bupiv. 0.75% - long eye block, clinic supply, Use as directed for procedure. Refrigerate. Exp: 07/13/22 DOS: 07/13/22 10 mL 07/05/2022 1:54 PM CDT 07/02/2022 Active hydroCHLOROthia zide (HCTZ) 25 mg tablet Take 25 mg [...] at Not on file Legal Sex Male 3:20 PM CDT Gender Identity Not on file Sexual Orientation Not on file Obstetrics History Last Filed Vital Signs Vital Sign Reading Time Taken Comments Blood Pressure 142/84 07/13/2022 9:46 AM CDT Pulse 79 07/13/2022 9:46 AM CDT Temperature 36 C (96.8 F) 07/13/2022 9:17 AM CDT Respiratory Rate 16 07/13/2022 9:46 AM CDT Oxygen Saturation 98% 07/13/2022 9:46 AM CDT Inhaled Oxygen Concentration - - Weight 104.3 kg (230 lb) 07/12/2022 10:12 AM CDT Height 175.3 cm (5' 9) 07/12/2022 10:12 AM CDT Body Mass Index 33.96 07/12/2022 10:12 AM CDT Plan of Treatment Not on file Insurance [employer] [place] [id number] Advance Directives * Full Code (Latest Code Status on File) Date Activated Date Inactivated Comments 07/13/2022 7:33 AM 07/13/2022 12:23 PM Question Answer Comments Code Status Discussion: Reviewed Preferences Care Teams Equity Director Relationship Specialty Start Date End Date Staff, Other Clinical . PCP - General 07/03/22
--- OUTSIDE RECORDS SUMMARY | 2024-04-30 16:58 | XMS_ITS | Patient Health Record ---
Author Organization [facility] S Address [address] [facility] [address] [place], [place] [id number] Care Team Providers Care Operations Officer Afloat Name Role Phone W[employer] Pedro Primary Care Provider [phone] Allergies Allergen (clinical drug ingredient) Drug/Non Drug Allergy documented on EMR Reaction Allergy Type Onset Date Status Bactrim hives Drug Allergy Active Reason For Referral No Information Medications Medication SIG (Take, Route, Frequency, Duration) Notes Start Date End Date Status Loratadine-D 24HR 10-240 MG 1 tab(s) ora lly once a day for 30 days 11/20/2012 Active hydroCHLOROthiazide 25 MG 1 tab(s) orall y once a day for 90 Active Immunizations Vaccine Route Administration Date Status Comme nts Td (7 yrs and Older) Unknown 06/16/1998 Administered Tdap (Boostrix 7 years & older ) Unknown 01/08/2018 Adm inistered Problems Problem Type SNOMED Code ICD Code Onset Dates Problem Status W/U Status Risk Notes Problem 8434874 Benign essential hypertension (I10) Active confirmed Problem 909733440 Mixed hyperlipidemia (E78.2) Active confirmed Problem Seasonal allergic rhinitis (604865629) Other seasonal allergic rhinitis (J30.2) Active confirmed Problem 744022851 BMI 32.0-32.9,adult (Z68.32) Active confirmed Problem 632969197 Migraine without aura and without status migrainosus, not intractable (G43.009) Active confirmed Problem 772681115 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
[2024-04-30 17:07] VITALS: BP 127/86; PULSE 85; RESP 16; TEMP 36.8; O2SAT 98; BMI 34.4
[2024-04-30 17:24] LABS: Appearance Urine Clear (Clear); Bilirubin Urine Negative (Negative); Blood Urine Negative (Negative); Color Urine Yellow (Yellow); Glucose Urine Negative (Negative); Ketones Urine Negative (Negative); Leukocyte Esterase Urine Negative (Negative); Nitrite Urine Negative (Negative); Protein Urine Negative (Negative); Urobilinogen Urine 0.2 (0.2-1.0); pH Urine 6.5 (5.0-8.5)
--- NOTE | 2024-04-30 17:36 | CRLHL7_ITS ---
For Patients: As a result of the Century Cures Act, medical imaging exams and procedure reports are released immediately into your electronic medical record. You may view this report before your referring provider. If you have questions, please contact your health care provider. Indication: FLANK PAIN, LOWER LT BACK PAIN Technique: Noncontrast CT of the abdomen and pelvis was obtained. Please note that all CT scans at this facility use dose modulation, iterative reconstruction, and/or weight-based dosing when appropriate to reduce radiation dose to as low as reasonably achievable. Comparison: None. Findings: Lower thorax: Right lower lobe calcified granuloma. Liver and biliary tree: Right hepatic cyst. Gallbladder: Normal. Spleen: Normal noncontrast appearance. Pancreas: Mild fatty atrophy. Adrenal glands: Normal noncontrast appearance. Kidneys and ureters: No hydronephrosis. 1.8 centimeter right renal cyst (2/). 4 millimeter nonobstructing left renal calculus (2/). Gastrointestinal tract: Moderate stool burden is seen in the ascending and transverse colon. No evidence of acute appendicitis. No evidence of bowel obstruction. Small duodenal diverticulum. Peritoneal cavity: Normal. Bladder: Normal. Pelvic organs: Moderately enlarged prostate. Vasculature: Minimal calcification. Lymph nodes: Mildly enlarged bilateral inguinal lymph nodes measuring up to 1.2 centimeter on the right (2/173). Abdominal wall: Moderate fat containing periumbilical hernia. Small fat containing tnat-yvgzepx-cjyj-right inguinal hernias. Musculoskeletal: Moderate degenerative changes of the visualized spine with mild to moderate rightward curvature of the lumbar spine. Mild degenerative changes of the bilateral hips. Impression: 1. No hydronephrosis. 4 millimeter nonobstructing left renal calculus. 2. Moderate stool burden is seen in the ascending and transverse colon. No evidence of bowel obstruction. 3. Nonspecific mildly enlarged bilateral inguinal lymph nodes are favored to be reactive. Malignancy can not be excluded. Please note that all CT scans at this facility use dose modulation, iterative reconstruction, and/or weight-based dosing when appropriate to reduce radiation dose to as low as reasonably achievable. Dictated by Sergio Prado MD @ 04/30/2024 6:31:44 PM (Electronically Signed)
--- NOTE | 2024-04-30 17:39 | ED.GENADULT ---
HPI - General Adult General Chief complaint: Flank Pain Stated complaint: L flank/lower back pain Time Seen by Provider: 04/30/24 17:07 History of Present Illness HPI narrative: This 58-year-old male comes in reporting left flank pain that sometimes is very intense and seems to come and go. He does not report any injury event or strenuous activity. He does have some associated nausea. He does not report any personal history of kidney stones but he thinks that his father may have had kidney stone in the past. He does not report any dysuria or fever symptoms. Related Data Home Medications ?Medication ?Instructions ?Recorded ?Confirmed cetirizine 10 mg tablet 10 mg PO QDAY PRN 04/09/22 04/15/24 CPAP Not Applicable QHS 11/07/23 04/15/24 Previous Rx's ?Medication ?Instructions ?Recorded sildenafil 50 mg tablet 50 - 100 mg (1 - 2 x 50 mg) PO 08/01/23 QDAY PRN sexual activity #30 tabs hydrochlorothiazide 25 mg tablet 25 mg PO QDAY #90 tabs 11/07/23 ketorolac 10 mg tablet 10 mg PO Q8H 5 days #15 tabs 04/30/24 Allergies Allergy/AdvReac Type Severity Reaction Status Date / Time Sulfa (Sulfonamide Allergy Mild Hives Verified 04/15/24 15:33 Antibiotics) Review of Systems Status of ROS: Reports: 10 or more systems reviewed and unremarkable except as noted in History and below Narrative: Constitutional: No fevers, no weight gain or loss. Eyes: No discharge. No vision changes. HENT: No congestion, no sore throat, no ear pain. Cardiovascular: No chest pain, no palpitations. Respiratory: No shortness of breath, no wheezes, no cough. Gastrointestinal: No vomiting, no diarrhea. Left flank pain. Genitourinary: No dysuria, no hematuria. Musculoskeletal: Normal range of motion. Skin: No rashes, no pruritis. Neurological: No dizziness, weakness, sensory change, speech change. Endo/Heme/Allergies: No bruising or bleeding. No polydipsia. Pysch: no suicidality, no anxiety, no insomnia. All other systems reviewed and are negative. PFSH PFSH Surgical History S/P arthroscopy of right shoulder (05/22/22) ?Z98.890 - Other specified postprocedural states (ICD-10) History of arthroscopy of left shoulder (04/11/21) ?Z98.890 - Other specified postprocedural states (ICD-10) Social History (Updated 11/07/23 @ 08:07 by Yue Duarte~[facility], [facility]) What is your current living situation?: declined to answer Problems where you live: declined to answer In the past 12 months, utilities in danger of being shut off: declined to answer In past 12 months, lack of transportation kept you from medical appts, meetings, work, or getting things needed for daily living: declined to answer In the past 12 mos, have been you worried that your food would run out before you had money to buy more?: declined to answer In the past 12 mos, the food you bought just didn't last and you didn't have money to buy more?: declined to answer Smoking Status: Never smoker Do you use any of these nicotine containing products: None Second hand tobacco smoke exposure: No How often do you have a drink containing alcohol: never AUDIT-C Alcohol total score: 0 Non-prescribed substance use: denies use Caffeine: Yes How often does anyone, including family, friends and others, physically hurt you: decline to answer How often does anyone, including family, friends and others, insult or talk down to you: decline to answer How often does anyone, including family, friends and others, threaten you with harm: decline to answer How often does anyone, including family, friends and others, scream or curse at you: decline to answer Health Related Social Needs: unsheltered homelessness (Z59.02) Exam Narrative: Exam Narrative: Constitutional: Well-developed, well-nourished, no acute distress. HEENT: Normocephalic, atraumatic. Neck: Normal range of motion. Nontender. Supple. Heart: Regular. No murmurs. Normal rate. Intact distal pulses. Lungs: Clear to auscultation. No chest discomfort. No wheezes, rhonchi, or rales. Abdomen: Normal bowel sounds. Nontender. No rebound tenderness. Genitalia: Deferred. Back: No midline tenderness. Normal range of motion. Extremities: Normal range of motion. No injury. Skin: Intact. No rash. Warm. No erythema or pallor. Neurologic: No altered sensation. No weakness. Alert and oriented. Psychiatric: No suicidality. No anxiety or depression. No insomnia. Nursing notes and vitals signs are reviewed. Const: Vital Signs, click to edit/add: Vital Signs - 24 hr 04/30/24 17:07 Temperature 98.3 F Pulse Rate [Pulse Oximeter] 85 Respiratory Rate 16 Blood Pressure [Ri ght Upper Arm] 127/86 Pulse Oximetry 98 Oxygen Delivery Me thod Room Air Course Vital Signs Vital signs: Initial Vital Signs Temperature 98.3 F 04/30/24 17:07 Temperature Source Temporal Artery Scan 04/30/24 17:07 Pulse Rate 85 04/30/24 17:07 Respiratory Rate 16 04/30/24 17:07 Blood Pressure 127/86 04/30/24 17:07 Blood Pressure Mean 99 04/30/24 17:07 Blood Pressure Position Sitting 04/30/24 17:07 Pulse Oximetry 98 04/30/24 17:07 Oxygen Delivery Method Room Air 04/30/24 17:07 Vital Signs Temperature 98.3 F 04/30/24 17:07 Pulse Rate 85 04/30/24 17:07 Respiratory Rate 16 04/30/24 17:07 Blood Pressure 127/86 04/30/24 17:07 Pulse Oximetry 98 04/30/24 17:07 Oxygen Delivery Method Room Air 04/30/24 17:07 Temperature 98.3 F 04/30/24 17:07 Pulse Rate 85 04/30/24 17:07 Respiratory Rate 16 04/30/24 17:07 Blood Pressure 127/86 04/30/24 17:07 Pulse Oximetry 98 04/30/24 17:07 Oxygen Delivery Method Room Air 04/30/24 17:07 Medications Administered Medications: Discontinued Medications Generic Name Dose Route Start Last Admin Trade Name Freq PRN Reason Stop Dose Admin Ketorolac Tromethamine 10 mg 04/30/24 17:36 04/30/24 17:46 Ketorolac 10 Mg Tablet PO 04/30/24 17:37 10 mg ONCE ONE Administration Medical Decision Making [facility] Narrative Medical decision making narrative: This patient comes in with left flank pain as described above. His symptoms are somewhat suspicious for kidney stone. His urinalysis is normal without any sign of infection or hematuria. CT scan without contrast is obtained and does show a stone in the left kidney that is nonobstructive. There are some phleboliths in his pelvis but the radiologist does not identify any of those has obstructive ureteral calculus. The patient did receive an oral dose of Toradol 10 mg in this is brought relief to his symptoms. I did relate other incidental findings on the CT scan with the patient. He is okay to be discharged home. I did provide a prescription for Toradol. Lab Data Labs: Lab Results 04/30/24 Range/Units 17:15 Urine Color Yellow (Yellow) Urine Appearance Clear (Clear) Urine pH 6.5 (5.0-8.5) Ur Specific Comfort 1.020 (1.000-1.030) Urine Protein Negative (Negative) Urine Glucose (UA) Negative (Negative) Urine Ketones Negative (Negative) Urine Blood Negative (Negative) Urine Nitrite Negative (Negative) Urine Bilirubin Negative (Negative) Urine Urobilinogen 0.2 (0.2-1.0) Ur Leukocyte Esterase Negative (Negative) Urine RBC 0-2 (0-2) Urine WBC 0-2 (0-5) Ur Squamous Epith Cells None (None-Few) Urine Bacteria None (None) Imaging Data CT scan - abdomen: Radiologist's impression: Findings: Lower thorax: Right lower lobe calcified granuloma. Liver and biliary tree: Right hepatic cyst. Gallbladder: Normal. Spleen: Normal noncontrast appearance. Pancreas: Mild fatty atrophy. Adrenal glands: Normal noncontrast appearance. Kidneys and ureters: No hydronephrosis. 1.8 centimeter right renal cyst (2/67). 4 millimeter nonobstructing left renal calculus (2/74). Gastrointestinal tract: Moderate stool burden is seen in the ascending and transverse colon. No evidence of acute appendicitis. No evidence of bowel obstruction. Small duodenal diverticulum. Peritoneal cavity: Normal. Bladder: Normal. Pelvic organs: Moderately enlarged prostate. Vasculature: Minimal calcification. Lymph nodes: Mildly enlarged bilateral inguinal lymph nodes measuring up to 1.2 centimeter on the right (2/173). Abdominal wall: Moderate fat containing periumbilical hernia. Small fat containing mhsq-wwlmkxi-ktjk-right inguinal hernias. Musculoskeletal: Moderate degenerative changes of the visualized spine with mild to moderate rightward curvature of the lumbar spine. Mild degenerative changes of the bilateral hips. Impression: 1. No hydronephrosis. 4 millimeter nonobstructing left renal calculus. 2. Moderate stool burden is seen in the ascending and transverse colon. No evidence of bowel obstruction. 3. Nonspecific mildly enlarged bilateral inguinal lymph nodes are favored to be reactive. Malignancy can not be excluded. Discharge Plan Discharge Clinical Impression: Acute left flank pain Patient Disposition: Home, Self-Care Condition: Improved Additional Instructions: Take medication as needed and directed. Activity as tolerated. Follow up with MD or return if symptoms are persistent or worsening. Prescriptions: New ketorolac 10 mg tablet 10 mg PO Q8H 5 Days Qty: 15 0RF No Action sildenafil 50 mg tablet 50 - 100 mg PO QDAY PRN (Reason: sexual activity) Qty: 30 5RF Rx Instructions: administer 30 minutes to 4 hours before activity CPAP Not Applicable QHS hydrochlorothiazide 25 mg tablet 25 mg PO QDAY Qty: 90 3RF cetirizine 10 mg tablet 10 mg PO QDAY PRN Follow Up/Referrals: Giovanni Kruse MD [Primary Care Provider] - Stand Alone Forms: [employer] Info Instructions
--- OUTSIDE RECORDS SUMMARY | 2024-04-30 17:40 | XMS_ITS | Clinical Summary ---
Author Organization [facility] Address [address] [place] [id number] Care Team Providers Care Assembly Person Name Role Phone Staff, Other Clinical Primary [...] Not on file Insurance [employer] [employer]KINS [id number] Advance Directives * Full Code (Latest Code Status on File) Date Activated Date Inactivated Comments 07/13/2022 7:33 AM 07/13/2022 12:23 PM Question Answer Comments Code Status Discussion: Reviewed Preferences Care Teams Assembly Person Relationship Specialty Start Date End Date Staff, Other Clinical . PCP - General 07/03/22
[2024-04-30 17:41] LABS: RBC Urine 0-2 (0-2); WBC Urine 0-2 (0-5)
--- OUTSIDE RECORDS SUMMARY | 2024-04-30 17:41 | XMS_ITS | Clinical Summary ---
Author Organization [facility] Address [address] [place] [address] Care Team Providers Care Pipe Coverer And Insulator Name Role Phone Andrew Wood MD Primary Care Provider Source Comments You are receiving this document as you are listed as the primary care provider,follow-up provider, or the patient has been referred to you for consultation.This is in compliance with the Medicare and[facility] EHR Incentive Program,which states Providers who [...] Insurance FULLY INSURED FULLY INSURED Care Teams Pipe Coverer And Insulator Relationship Specialty Start Date End Date Andrew Wood MD [address] [place] [address] PCP - General Family Practice 08/12/11
[2024-04-30] MEDS: KETOROLAC 10 MG TABLET PO (17:46)
== END 2024-04-30 19:23 | disposition home or self-care (01) ==
PROVIDERS: Emergency Provider Emergency Medicine Emergency Medical Services; PCP Family Medicine
DX: R10.32 Left lower quadrant pain (principal)
CPT/HCPCS: 74176; 81001; 99284; A9270

== ENCOUNTER 2025-01-08 13:33 | Outpatient (CLI) | payer BC, SELFPAY ==
--- NOTE | 2025-01-08 13:45 | CRLHL7_ITS ---
For Patients: As a result of the Century Cures Act, medical imaging exams and procedure reports are released immediately into your electronic medical record. You may view this report before your referring provider. If you have questions, please contact your health care provider. INDICATION: Mid back pain. TECHNIQUE: Noncontrast sagittal T1, T2, STIR and axial GRE sequences are provided. No comparisons. FINDINGS: The overall stature, alignment and intrinsic marrow signal of the thoracic spine is within normal limits. Thoracic cord is normal. At T7-8, minor left posterior paracentral disc bulge effaces the ventral thecal sac but results in no central canal or foraminal narrowing. No other suspicious disc bulges or protrusions. No suspicious central canal or foraminal narrowing. IMPRESSION: 1. Minor discogenic degenerative change of the midthoracic spine resulting in no significant central canal or foraminal narrowing. 2. Otherwise, unremarkable MRI of the thoracic spine. Dictated by Leander Rodriguez MD @ 01/08/2025 3:17:00 PM (Electronically Signed)
== END 2025-01-08 13:34 | disposition home or self-care (01) ==
LOC: MRI 13:33
PROVIDERS: PCP Family Medicine; Visit Provider Family Medicine
DX: M54.6 Pain in thoracic spine (principal); M41.26 Other idiopathic scoliosis, lumbar region
CPT/HCPCS: 72146

== ENCOUNTER 2025-01-11 11:05 | Outpatient (CLI) | payer BC, SELFPAY | END 2025-01-11 11:06 | disposition home or self-care (01) | LOC: NFLDREF 01-16 17:48 | PROVIDERS: PCP Family Medicine; Referring Provider Family Medicine; Visit Provider Family Medicine | DX: Z12.5 Encounter for screening for malignant neoplasm of prostate (principal); Z86.39 Personal history of other endocrine, nutritional and metabolic disease | CPT/HCPCS: 80053; 80061; G0103 ==